=== PATIENT | female | born 1970 | race Caucasian/White ===

== ENCOUNTER 2018-01-08 00:14 | Emergency (ER) | payer OTHER ==
--- NOTE | 2018-01-08 00:58 | EDPHY ---
General Time Seen by Provider: 01/08/18 00:25 Narrative: CHIEF COMPLAINT: wound VAC beeping HISTORY OF PRESENT ILLNESS: Patient presents with complaints of wound VAC beeping. She states that she was discharged home yesterday from [facility] after diagnosis of carly's gangrene/necrotizing fasciitis. She underwent emergent surgical debridement of the wound involving the right buttock, right thigh right labia. She was taken back to the operating room 2 days later, on January 03 for further debridement. A VAC was placed at the time. This was monitored for 2 days and she was discharged home yesterday feeling well. She had no complaints until this afternoon when it started beeping. There is an error of air leak, and she was instructed to present to the emergency department for this. She has schedule wound VAC changes on Tuesday, Tuesday and Tuesday pending for next week at home health. No fever. Minimal pain. No other associated complaints or modifying factors for MEDICAL/SURGICAL/SOCIAL HISTORY: Type 2 diabetes mellitus, migraines, depression, dyslipidemia, obesity, chronic back pain, necrotizing fasciitis REVIEW OF SYSTEMS: Ten systems reviewed and are negative unless otherwise noted in the HPI EXAMINATION General Appearance: Alert, no distress Head: normocephalic, atraumatic Cardiovascular: Pulses normal throughout with good signs of perfusion. Brisk cap refill Neurological: A&O, sensory symmetric, strength symmetric Skin: Warm and dry. There are extensive postoperative changes to the right anterior thigh, right groin, right buttock and right labia. Consistent with recent debridement. Wound VAC in place with an air leak medially near the right labia. No surrounding cellulitis. No dehiscence. Extremities: Nontender, no pedal edema DIFFERENTIAL DIAGNOSES: Including but not limited to post operative complication, wound VAC dysfunction , air leak MDM: 12:25 a.m. Visit for air leak from wound VAC. She is postop day 6 from extensive debridement from Carly gangrene/necrotizing fasciitis on the right groin, buttock and labia, and postop day 4 from reexploration and debridement. She has minimal complaints of pain. No fever. No abdominal pain. Her only complaint is that the wound VAC is BP and displaying an error. 12:50 a.m. I have evaluated the patient with female RN, Terra, at bedside. I was able to find the area of air leak from the dressing. I was able to cover this with a new Tegaderm. The VAC was reset and is now sealing with no air leak. Patient is feeling much better and excited that the "damn thing isn't beeping at me." Her pain is baseline if not improved. Her vital signs reveal tachycardia upon arrival, but she was very upset and anxious and we will recheck at this time. 1:30 a.m. Patient re-evaluated. Wound VAC is working with no alarms at this time. She has ambulated with this. I do feel she is stable for discharge home. She will follow up accordingly and has home health arranged for Tuesday, Tuesday and Tuesday for VAC changes. She is comfortable this plan. Discharged home stable condition. SUPERVISION: This patient was independently evaluated without direct involvement of or examination by the attending physician. ED Precautions: Worsening pain. Erythema, edema, cyanosis, pallor, paresthesia or anesthesia. - History Smoking Status: Current every day smoker - Objective Vital Signs: Initial Vital Signs Temperature (C) 98.1 F 01/08/18 00:15 Heart Rate 122 H 01/08/18 00:15 Respiratory Rate 18 01/08/18 00:15 Blood Pressure 148/101 H 01/08/18 00:15 O2 Sat (%) 93 01/08/18 00:15 O2 Delivery Mode Room Air Allergies/Adverse Reactions: acetaminophen [From Tylenol] Allergy (Verified 01/08/18 00:19) aspirin Allergy (Verified 01/08/18 00:18) carisoprodol [From Soma] Allergy (Verified 01/08/18 00:19) Home Medications: Medication Instructions Recorded Abx 01/08/18 Metformin HCl 01/08/18 Zoloft 50mg (*) 01/08/18 Departure - Departure Disposition: Home, Routine, Self-Care Clinical Impression: Wound disruption, post-op, skin Qualifiers: Encounter type: initial encounter Qualified Code(s): T81.31XA - Disruption of external operation (surgical) wound, not elsewhere classified, initial encounter Condition: Good Instructions: Negative Pressure Wound Therapy (DC) Additional Instructions: 1. Continue previous instructions from your [facility] discharge 2. Return to emergency department for any malfunction of the wound VAC 3. Return here for any fever, redness, warmth, drainage or increasing pain Referrals: [facility] ,. [Edm Groups for Call Sched] - As per Instructions Lisy Alfonso MD [Medical Doctor] - As per Instructions
[2018-01-08 01:51] VITALS: BP 154/65
== END 2018-01-08 01:43 | disposition home or self-care (01) ==
DX: T81.31XA Disruption of external operation (surgical) wound, not elsewhere classified, initial encounter (principal); F17.200 Nicotine dependence, unspecified, uncomplicated